=== PATIENT | female | born 1975 | race Caucasian/White ===

== ENCOUNTER 2016-09-05 15:48 | Emergency (ER) | payer SELFPAY ==
--- NOTE | 2016-09-05 15:58 | ER Document Report ---
ED Medical Screen (RME) - General Stated Complaint: HEAD PAIN Time seen by provider: 15:55 Notes: Patient complains of worst headache ever. The last 3 days. States headache is all over head, radiating down to left shoulder. Patient has had some nausea, but denies vomiting or diarrhea. Also complains of right lower back pain. Patient does admit to history of kidney stones in both kidneys. Denies fever, denies cough, cold or congestion. Patient states she has not had her eyes checked in about 10 years. Patient denies blurred vision, but states she does have light sensitivity. Patient states she has liver problems and is unable to take NSAIDs, so she has not taken anything for the headache. I have greeted and performed a rapid initial assessment of this patient. A comprehensive ED assessment and evaluation of the patient, analysis of test results and completion of the medical decision making process will be conducted by additional ED providers. Physical Exam - HEENT Head: Normocephalic Eyes: Normal Conjunctiva: Normal Extraocular movements intact: Yes Pupils: PERRL
[2016-09-05] MEDS ORDERED: OXYCODONE-ACETAMINOPHEN 5-325 MG TABLET PO ONE (16:28)
[2016-09-05] MEDS ORDERED: LISINOPRIL 10 MG TABLET PO ONE ×2 (16:28→20:59)
--- NOTE | 2016-09-05 16:53 | ER Document Report ---
ED Headache - General Chief Complaint: Headache Stated Complaint: HEAD PAIN Information source: Patient Notes: Patient is a 41-year-old female that presents today with onset 3 days of a mild frontal headache. She denies any neck pain, head trauma, weakness or numbness, fevers, or blurry vision. Patient states she was taking lisinopril 20 mg daily until on one year ago when she states she ran out of insurance and does not have a primary care physician. Patient also states around 3 days she had some right sided "flank" pain. She describes any aggravating relieving factors, fevers, dysuria, and states she does have a history of kidney stones. She states she has never needed operative intervention for the kidney stones. TRAVEL OUTSIDE OF THE [place] IN LAST 30 DAYS: No - HPI Patient complains to provider of: Headache Patient reports: Other - See above Onset: Other - See above Onset was: Gradual Timing: Better Quality of pain: Other - See above Severity: Mild Pain Level: 1 Context: denies: Head injury Associated symptoms: Other - See above Exacerbated by: Light, Noise Similar symptoms previously: No Recently seen / treated by doctor: Yes - Related Data Allergies/Adverse Reactions: azathioprine [From Imuran] Allergy (Verified 09/05/16 15:57) Past Medical History - Social History Smoking Status: Current Every Day Smoker Cigarette use (# per day): No Chew tobacco use (# tins/day): No Frequency of alcohol use: None Drug Abuse: None Family History: Reviewed & Not Pertinent Patient has suicidal ideation: No Patient has homicidal ideation: No Renal/ Medical History: Denies: Hx Peritoneal Dialysis Review of Systems - Review of Systems Constitutional: denies: Fever EENT: denies: Eye discharge, Nose discharge Cardiovascular: denies: Chest pain, Palpitations Respiratory: denies: Short of breath Gastrointestinal: denies: Abdomen distended, Vomiting Genitourinary: denies: Dysuria Musculoskeletal: denies: Leg swelling Skin: Other - no hives. denies: Rash Neurological/Psychological: Other - no slurred speech -: Yes All other systems reviewed and negative Physical Exam - Vital signs Vitals: Temp Pulse Resp BP Pulse Ox 98.9 F 86 18 169/88 H 97 09/05/16 15:55 09/05/16 15:55 09/05/16 15:55 09/05/16 15:55 09/05/16 15:55 Notes: Reviewed vital signs and nursing note as charted by RN. CONSTITUTIONAL: Alert and oriented and responds appropriately to questions. Well -appearing; well-nourished HEAD: Normocephalic; atraumatic EYES: PERRL NECK: Supple without meningismus; non-tender; no cervical lymphadenopathy, no masses CARD: Regular rate and rhythm; no murmurs, no clicks, no rubs, no gallops; symmetric distal pulses RESP: Normal chest excursion without splinting or tachypnea; breath sounds clear and equal bilaterally; no wheezes, no rhonchi, no rales ABD/GI: Normal bowel sounds; non-distended; soft, non-tender, no rebound, no guarding; no palpable organomegaly or masses BACK: The back appears normal and is non-tender to palpation, there is no CVA tenderness EXT: Normal ROM in all joints; non-tender to palpation; no cyanosis, no effusions, no edema SKIN: Normal color for age and race; warm; dry; good turgor; capillary refill < 2 seconds; no acute lesions noted NEURO: CN II through XII are intact. Patient has 5 out of 5 bilateral upper and lower extremity strength with sensation intact to light touch. PSYCH: The patient's mood and manner are appropriate. Grooming and personal hygiene are appropriate. Course - Re-evaluation Re-evalutation: 09/05/16 16:53 Given the history and physical examination I will obtain a CT scan of the head, provide pain and blood pressure medications, and obtain a basic chemistry to check the patient's creatinine and potassium level. I believe acute angle- closure glaucoma, temporal arteritis, subarachnoid hemorrhage, altered be extremely unlikely. 09/05/16 17:[address] scan of the head shows no acute abnormalities. Patient appears to have a possible urinary tract infection. Normal creatinine level. Given the history of kidney stones we will also perform a CT scan renal colic protocol to make sure that the patient does not have an infected stone. Patient still has no focal neurological deficits. 09/05/16 18:38 CT scan shows possibly pancreatic inflammation. No kidney stones present. I have added on a lipase. Antibiotics for the urinary tract infection are infusing. 09/05/16 19:52 Patient still has no focal neurological deficits. She states the headache and back pain has resolved. Patient has no obvious kidney stones on CT scan. Lipase level as recorded. Patient will be discharged home with antibiotics, urine culture pending, with strict return precautions. Given the repeat blood pressure before intervention of 102 and 55, I referred the patient to the [facility] and will hold restarting the patient' s lisinopril at this time. - Vital Signs Vital signs: Temp Pulse Resp BP Pulse Ox 98.9 F 84 18 106/60 99 09/05/16 15:55 09/05/16 18:59 09/05/16 18:59 09/05/16 18:59 09/05/16 18:59 - Laboratory Result Diagrams: 09/05/16 16:40 09/05/16 16:40 Laboratory results interpreted by me: 09/05/16 09/05/16 09/05/16 16:40 16:40 16:40 WBC 12.4 H Glucose 142 H Calcium 10.5 H Urine Blood MODERATE H Ur Leukocyte Esterase MODERATE H Discharge - Discharge Clinical Impression: Pyelonephritis Headache Qualifiers: Headache type: unspecified Headache chronicity pattern: acute headache Intractability: not intractable Qualified Code(s): R51 - Headache Condition: Good Disposition: HOME, SELF-CARE Additional Instructions: Come back immediately with any return of headaches, weakness or numbness, fevers or vomiting, or any other acute problems. Please make sure that you follow-up with your primary care provider that we have referred you to as well as the urine culture results while taking the antibiotics we have prescribed.. Prescriptions: Sulfamethoxazole/Trimethoprim [Bactrim Ds Tablet] 1 each PO BID #14 tablet
[2016-09-05 17:09] LABS: APPEARANCE,URINE SLIGHTLY-CLOUDY; BILIRUBIN,URINE NEGATIVE (NEGATIVE); GLUCOSE, URINE NEGATIVE (NEGATIVE); KETONES,URINE NEGATIVE (NEGATIVE); LEUKOCYTE ESTERASE,URINE MODERATE (NEGATIVE); NITRITE,URINE NEGATIVE (NEGATIVE); PROTEIN,URINE NEGATIVE (NEGATIVE); URINE SPECIFIC GRAVITY 1.016; UROBILINOGEN,URINE NEGATIVE mg/dL (<2.0)
[2016-09-05 17:12] LABS: ABSOLUTE BASOPHILS # (AUTO) 0.1 10^3/uL (0.0-0.2); ABSOLUTE EOSINOPHILS # (AUTO) 0.5 10^3/uL (0.0-0.6); ABSOLUTE LYMPHOCYTES (AUTO) 3.3 10^3/uL (0.5-4.7); ABSOLUTE MONOCYTES (AUTO) 0.9 10^3/uL (0.1-1.4); ABSOLUTE NEUT (AUTO) 7.6 10^3/uL (1.7-8.2); BASOPHILS % (AUTO) 0.4 % (0-2); EOSINOPHILS % (AUTO) 3.6 % (0-6); HEMOGLOBIN 14.1 g/dL (12.0-15.5); HGB HCT DIFFERENCE 0.3; LYMPHOCYTES % (AUTO) 26.9 % (13-45); MEAN CORPUSCULAR HEMOGLOBIN 31.8 pg (27.0-33.4); MEAN CORPUSCULAR HGB CONC 33.7 g/dL (32.0-36.0); MEAN CORPUSCULAR VOLUME 95 fl (80-97); MONOCYTES % (AUTO) 7.3 % (3-13); RED BLOOD COUNT 4.44 10^6/uL (3.72-5.28); RED CELL DISTRIBUTION WIDTH 13.8 % (11.5-14.0); SEGMENTED NEUTROPHILS % (AUTO) 61.8 % (42-78); WHITE BLOOD COUNT 12.4 10^3/uL (4.0-10.5)
[2016-09-05 17:31] LABS: ANION GAP 12 (5-19); BLOOD UREA NITROGEN 15 mg/dL (7-20); CALCIUM 10.5 mg/dL (8.4-10.2); CARBON DIOXIDE 27 mmol/L (22-30); CHLORIDE 101 mmol/L (98-107); CREATININE RESULT 0.86 mg/dL (0.52-1.25); GLUCOSE 142 mg/dL (75-110); POTASSIUM 4.2 mmol/L (3.6-5.0); SODIUM 140.4 mmol/L (137-145)
[2016-09-05] MEDS ORDERED: CEFTRIAXONE RTU 1 GM/D5W 50 ML IV ONE (17:32)
[2016-09-05] MEDS ORDERED: ONDANSETRON HCL INJ/PF 4 MG/2 ML SDV ONE (18:29)
[2016-09-05 18:55] LABS: ADD ON TESTING BLD IN LAB ACKNOWLEDGE
[2016-09-05 19:19] LABS: LIPASE 136.1 U/L (23-300)
[2016-09-05 21:37] VITALS: BP 143/84
== END 2016-09-05 21:28 | disposition home or self-care (01) ==
LOC: ER 15:48
DX: R51 Headache (principal); N12 Tubulo-interstitial nephritis, not specified as acute or chronic; F17.200 Nicotine dependence, unspecified, uncomplicated; Z87.442 Personal history of urinary calculi; Z88.8 Allergy status to other drugs, medicaments and biological substances
CPT/HCPCS: 99284; 96375; 96365; 87086; 36415; 83690; 85025; 80048; 81001; 70450; 76380; J2405; J0696

== ENCOUNTER 2017-08-02 00:09 | Emergency (ER) | payer BC ==
[2017-08-02] MEDS ORDERED: ACETAMINOPHEN 325 MG TABLET PO ONE (02:32)
[2017-08-02] MEDS ORDERED: KETOROLAC TROMETHAMINE 60 MG/2 ML SDV IM ONE (02:32)
[2017-08-02] MEDS ORDERED: ONDANSETRON 4 MG TAB.RAPDIS PO ONE (02:32)
[2017-08-02] MEDS ORDERED: LISINOPRIL 10 MG TABLET PO ONE (02:33)
--- NOTE | 2017-08-02 02:38 | ER Document Report ---
ED General - General Chief Complaint: Blood Pressure Problem Stated Complaint: BLOOD PRESSURE PROBLEMS, HEADACHE Time Seen by Provider: 08/02/17 02:18 Mode of Arrival: Ambulatory Information source: Patient TRAVEL OUTSIDE OF THE [place] IN LAST 30 DAYS: No - HPI Notes: Patient is a 42-year-old female with history of hypertension presents emergency department with reports that she felt dizzy at work and then briefly felt nauseated and then developed a headache. The patient reports no head injury or focal weakness or numbness or vomiting. The patient denies any chest pain. 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 The patient is supposed to be on lisinopril 20 mg daily but has not had any for 1 year. The patient denies any fever or difficulty breathing or constipation or diarrhea. History of tubal ligation. Not the worst headache of her life. No neck stiffness. - Related Data Allergies/Adverse Reactions: azathioprine [From Imuran] Allergy (Verified 09/05/16 15:57) Past Medical History - General Information source: Patient - Social History Smoking Status: Never Smoker Frequency of alcohol use: None Drug Abuse: None Lives with: Spouse/Significant other Family History: Reviewed & Not Pertinent Renal/ Medical History: Denies: Hx Peritoneal Dialysis Review of Systems - Review of Systems Notes: REVIEW OF SYSTEMS: CONSTITUTIONAL : Denies fever, chills, or sweats. Denies recent illness. EENT: Denies eye, ear, throat, or mouth pain or symptoms. Denies nasal or sinus congestion or discharge. Denies throat, tongue, or mouth swelling or difficulty swallowing. CARDIOVASCULAR: Denies chest pain. Denies palpitations or racing or irregular heart beat. Denies ankle edema. RESPIRATORY: Denies cough, cold, or chest congestion. Denies shortness of breath, difficulty breathing, or wheezing. GASTROINTESTINAL: Denies abdominal pain or distention. Denies vomiting, or diarrhea. Denies blood in vomitus, stools, or per rectum. Denies black, tarry stools. Denies constipation. GENITOURINARY: Denies difficulty urinating, painful urination, burning, frequency, blood in urine, or discharge. FEMALE GENITOURINARY: Denies vaginal bleeding, heavy or abnormal periods, irregular periods. Denies vaginal discharge or odor. MUSCULOSKELETAL: Denies back or neck pain or stiffness. Denies joint pain or swelling. SKIN: Denies rash, lesions or sores. HEMATOLOGIC : Denies easy bruising or bleeding. LYMPHATIC: Denies swollen, enlarged glands. NEUROLOGICAL: Denies confusion or altered mental status. Denies passing out or loss of consciousness. Denies weakness or paralysis or loss of use of either side. Denies problems with gait or speech. Denies sensory loss, numbness, or tingling. Denies seizures. PSYCHIATRIC: Denies anxiety or stress. Denies depression, suicidal ideation, or homicidal ideation. ALL OTHER SYSTEMS REVIEWED AND NEGATIVE. Dictation was performed using [employer] voice recognition software Physical Exam - Vital signs Vitals: Temp Pulse Resp BP Pulse Ox 99.1 F 111 H 20 145/98 H 95 08/02/17 00:15 08/02/17 00:15 08/02/17 00:15 08/02/17 00:15 08/02/17 00:15 - Notes Notes: Patient PHYSICAL EXAMINATION: GENERAL: Well-appearing, well-nourished and in no acute distress. HEAD: Atraumatic, normocephalic. No temporal arterial tenderness. No TMJ joint tenderness. No sinus tenderness. EYES: Pupils equal round and reactive to light, extraocular movements intact, conjunctiva are normal. Anterior chambers are not shallow. ENT: Nares patent, oropharynx clear without exudates. Moist mucous membranes. NECK: Normal range of motion, supple without lymphadenopathy. No meningismus. Negative Kernig's. Negative Brudzinski's. LUNGS: Breath sounds clear to auscultation bilaterally and equal. No wheezes rales or rhonchi. HEART: Regular rate and rhythm without murmurs ABDOMEN: Soft, nontender, nondistended abdomen. No guarding, no rebound. No masses appreciated. Female : deferred Musculoskeletal: Normal range of motion, no pitting or edema. No cyanosis. NEUROLOGICAL: Cranial nerves grossly intact. Normal speech, normal gait. Normal sensory, motor exams. Normal reflexes. No cerebellar ataxia. PSYCH: Normal mood, normal affect. SKIN: Warm, Dry, normal turgor, no rashes or lesions noted. Course - Re-evaluation Re-evalutation: 08/02/17 02:37 Patient was given Toradol and Tylenol and Zofran and her regular dose of lisinopril 20 mg by mouth. Patient's initial blood pressure was 145/98 on arrival. 08/02/17 06:09 Headache was resolved after medications and patient denied any nausea. No evidence for endorgan damage or acute intracranial bleed or injury or CVA or acute neurologic compromise. Blood sugar was elevated at 269 and patient's hemoglobin A1c was over 11. Patient was counseled at length about the need to control her diet tend to have follow-up for her diabetes. She stated that in the past the patient has had diet controlled diabetes and was told to watch her they said down there and try to get him to hurry sandbag diet and sugars closely. Repeat blood pressure was 128/70. - Vital Signs Vital signs: Temp Pulse Resp BP Pulse Ox 99.1 F 111 H 20 145/98 H 95 08/02/17 00:15 08/02/17 00:15 08/02/17 00:15 08/02/17 00:15 08/02/17 00:15 - Laboratory Result Diagrams: 08/02/17 02:35 08/02/17 02:35 Laboratory results interpreted by me: 08/02/17 08/02/17 08/02/17 02:35 02:35 02:35 WBC 14.4 H Absolute Neutrophils 9.4 H Glucose 269 H Hemoglobin A1c % 11.5 H Calcium 10.7 H Urine Protein Urine Glucose (UA) Urine Blood 08/02/17 05:19 WBC Absolute Neutrophils Glucose Hemoglobin A1c % Calcium Urine Protein 30 H Urine Glucose (UA) >=500 H Urine Blood SMALL H - EKG Interpretation by Ar EKG shows normal: Sinus rhythm Additional EKG results interpreted by me: 08/02/17 03:19 EKG as interpreted by nc showed normal sinus rhythm heart rate of 70. There is left anterior fascicular block. There is no gross evidence for acute DE or ischemia noted. There is no old EKG available for comparison. Discharge - Discharge Clinical Impression: Hyperglycemia Hypertension Qualifiers: Hypertension type: essential hypertension Qualified Code(s): I10 - Essential ( primary) hypertension Headache Qualifiers: Headache type: other headache syndrome Qualified Code(s): G44.89 - Other headache syndrome Urinary tract infection Qualifiers: Urinary tract infection type: site unspecified Hematuria presence: without hematuria Qualified Code(s): N39.0 - Urinary tract infection, site not specified Condition: Stable Disposition: HOME, SELF-CARE Instructions: Headache ([facility]), High Blood Pressure ([facility]), Hyperglycemia ([facility]), Urinary Tract Infection ([facility]) Additional Instructions: Follow-up with your regular doctor for further diabetic education and for a glucometer. Drink plenty of water. Return to the emergency department in case of vomiting, weakness, severe headache. Prescriptions: Ondansetron [Zofran Odt 4 mg Tablet] 1 tab PO Q8HP PRN #10 tab.rapdis PRN Reason: For Nausea/Vomiting Lisinopril [Zestril] 20 mg PO DAILY #30 tablet Metformin HCl [Glucophage 500 mg Tablet] 500 mg PO BID #60 tablet Sulfamethoxazole/Trimethoprim [Bactrim Ds Tablet] 1 each PO BID #14 tablet Forms: Return to Work Referrals: SHI HI MD [Primary Care Provider] - Follow up in 3-5 days
[2017-08-02 02:51] LABS: ABSOLUTE BASOPHILS # (AUTO) 0.1 10^3/uL (0.0-0.2); ABSOLUTE EOSINOPHILS # (AUTO) 0.4 10^3/uL (0.0-0.6); ABSOLUTE LYMPHOCYTES (AUTO) 3.7 10^3/uL (0.5-4.7); ABSOLUTE MONOCYTES (AUTO) 0.8 10^3/uL (0.1-1.4); ABSOLUTE NEUT (AUTO) 9.4 10^3/uL (1.7-8.2); BASOPHILS % (AUTO) 0.8 % (0-2); EOSINOPHILS % (AUTO) 2.6 % (0-6); HEMATOCRIT 42.2 % (36.0-47.0); HEMOGLOBIN 14.5 g/dL (12.0-15.5); LYMPHOCYTES % (AUTO) 25.5 % (13-45); MEAN CORPUSCULAR HEMOGLOBIN 32.4 pg (27.0-33.4); MEAN CORPUSCULAR HGB CONC 34.4 g/dL (32.0-36.0); MEAN CORPUSCULAR VOLUME 94 fl (80-97); MONOCYTES % (AUTO) 5.9 % (3-13); PLATELET COUNT 263 10^3/uL (150-450); RED BLOOD COUNT 4.48 10^6/uL (3.72-5.28); RED CELL DISTRIBUTION WIDTH 13.5 % (11.5-14.0); SEGMENTED NEUTROPHILS % (AUTO) 65.2 % (42-78); TOTAL CELLS COUNTED % (AUTO) 100 %; WHITE BLOOD COUNT 14.4 10^3/uL (4.0-10.5)
[2017-08-02 03:00] LABS: ALANINE AMINOTRANSFERASE 34 U/L (9-52); ALBUMIN 4.2 g/dL (3.5-5.0); ALKALINE PHOSPHATASE 94 U/L (38-126); ANION GAP 10 (5-19); ASPARTATE AMINO TRANSFERASE 24 U/L (14-36); BILIRUBIN,DIRECT 0.3 mg/dL (0.0-0.4); BILIRUBIN,TOTAL 0.6 mg/dL (0.2-1.3); BLOOD UREA NITROGEN 13 mg/dL (7-20); CALCIUM 10.7 mg/dL (8.4-10.2); CARBON DIOXIDE 26 mmol/L (22-30); CHLORIDE 101 mmol/L (98-107); GLUCOSE 269 mg/dL (75-110); POTASSIUM 4.1 mmol/L (3.6-5.0); TOTAL PROTEIN 7.3 g/dL (6.3-8.2)
--- NOTE | 2017-08-02 04:06 | RADIOLOGY REPORT (SQ) ---
EXAM DESCRIPTION: CT HEAD WITHOUT CLINICAL HISTORY: 42 years Female, headache COMPARISON: 09/05/2016. TECHNIQUE: No contrast. This exam was performed according to our departmental dose-optimization program, which includes automated exposure control, adjustment of the mA and/or kV according to patient size and/or use of iterative reconstruction technique. FINDINGS: No hemorrhage or infarct. No mass, mass effect, or midline shift. Brain and extra-axial structures appear intact. IMPRESSION: Normal CT of the head.
[2017-08-02 06:18] LABS: APPEARANCE,URINE SLIGHTLY-CLOUDY; BILIRUBIN,URINE NEGATIVE (NEGATIVE); COLOR,URINE YELLOW; GLUCOSE, URINE >=500 mg/dL (NEGATIVE); KETONES,URINE NEGATIVE (NEGATIVE); LEUKOCYTE ESTERASE,URINE NEGATIVE (NEGATIVE); NITRITE,URINE NEGATIVE (NEGATIVE); PROTEIN,URINE 30 mg/dL (NEGATIVE); URINE SPECIFIC GRAVITY 1.026; UROBILINOGEN,URINE NEGATIVE mg/dL (<2.0)
[2017-08-02] MEDS ORDERED: SULFAMETHOXAZOLE/TRIMETHOPRIM 800-160 MG TABLET PO ONE (06:21)
[2017-08-02 06:44] VITALS: BP 128/70
--- NOTE | 2017-08-02 07:45 | EKG REPORT ---
SEVERITY:- ABNORMAL ECG - SINUS RHYTHM LEFT ANTERIOR FASCICULAR BLOCK BORDERLINE ST-T CHANGES NONSPECIFIC : Confirmed by: Jonathon Landers MD 02-Aug-2017 07:44:15
== END 2017-08-02 06:40 | disposition home or self-care (01) ==
LOC: ER 00:09
DX: I10 Essential (primary) hypertension (principal); T46.4X6A Underdosing of angiotensin-converting-enzyme inhibitors, initial encounter; Z91.14 Patient's other noncompliance with medication regimen; G44.89 Other headache syndrome; N39.0 Urinary tract infection, site not specified; E11.65 Type 2 diabetes mellitus with hyperglycemia; I44.4 Left anterior fascicular block; Z88.8 Allergy status to other drugs, medicaments and biological substances
CPT/HCPCS: 93005; 99284; 96372; 36415; 85025; 80053; 81001; 84484; 83036; 70450; 93010; J1885; S0119

== ENCOUNTER 2020-02-21 14:53 | Emergency (ER) | payer SELFPAY ==
[2020-02-21] MEDS ORDERED: MORPHINE SULFATE 10 MG/ML INJ IV ONE (15:22)
[2020-02-21] MEDS ORDERED: KETOROLAC TROMETHAMINE INJ/PF 30 MG/1 ML SDV IV ONE (15:22)
[2020-02-21] MEDS ORDERED: NORMAL SALINE 1000 ML 1,000 ML IV ONE (15:22)
[2020-02-21] MEDS ORDERED: ONDANSETRON HCL INJ/PF 4 MG/2 ML SDV IV ONE (15:22)
--- NOTE | 2020-02-21 15:22 | ER Document Report ---
ED GI/ - General Chief Complaint: Possible Kidney Stone Stated Complaint: NAUSEA/VOMITING/FLANK PAIN Primary Care Provider: SHI HI MD [NO LOCAL MD] - Follow up as needed Mode of Arrival: Ambulatory Information source: Patient Notes: Otherwise healthy 45-year-old female presents emergency department chief complaint of sudden onset left flank pain. She reports associated nausea and urinary retention. Patient reports history of kidney stones, states this feels similar but worse. She denies any fever or chills. She states she was feeling fine prior to the onset of this. She denies any concern for any COVID-19 symptoms. TRAVEL OUTSIDE OF THE [place] IN LAST 30 DAYS: No - Related Data Allergies/Adverse Reactions: azathioprine [From Imuran] Allergy (Verified 02/21/20 15:17) Past Medical History - General Information source: Patient - Social History Smoking Status: Current Every Day Smoker Frequency of alcohol use: None Drug Abuse: None Family History: Reviewed & Not Pertinent Renal/ Medical History: Reports: Hx Kidney Stones. Denies: Hx Peritoneal Dialysis Surgical Hx: Negative - Immunizations Immunizations up to date: Yes Review of Systems - Review of Systems Constitutional: No symptoms reported EENT: No symptoms reported Cardiovascular: No symptoms reported Respiratory: No symptoms reported Gastrointestinal: No symptoms reported Genitourinary: Flank pain, Retention Female Genitourinary: No symptoms reported Musculoskeletal: No symptoms reported Skin: No symptoms reported Hematologic/Lymphatic: No symptoms reported Neurological/Psychological: No symptoms reported Physical Exam - Vital signs Vitals: Temp Pulse Resp BP Pulse Ox 98.1 F 71 18 135/86 H 96 02/21/20 15:15 02/21/20 15:15 02/21/20 15:15 02/21/20 15:15 02/21/20 15:15 - Notes Notes: PHYSICAL EXAMINATION: GENERAL: Well-appearing, well-nourished and in moderate distress. HEAD: Atraumatic, normocephalic. EYES: Pupils equal round and reactive to light, extraocular movements intact, conjunctiva are normal. ENT: Nares patent, oropharynx clear without exudates. Moist mucous membranes. NECK: Normal range of motion, supple without lymphadenopathy LUNGS: Breath sounds clear to auscultation bilaterally and equal. No wheezes rales or rhonchi. HEART: Regular rate and rhythm without murmurs ABDOMEN: Soft, nontender, nondistended abdomen. No guarding, no rebound. No masses appreciated. Female : Left CVA tenderness. Musculoskeletal: Normal range of motion, no pitting or edema. No cyanosis. NEUROLOGICAL: Cranial nerves grossly intact. Normal speech, normal gait. Normal sensory, motor exams PSYCH: Normal mood, normal affect. SKIN: Warm, Dry, normal turgor, no rashes or lesions noted. Course - Re-evaluation Re-evalutation: 02/21/20 17:14 Abdomen/Pelvis CT 02/21/20 16:13 IMPRESSION: 3 mm stone proximal left ureter. Mild hydronephrosis. CT abdomen pelvis without contrast shows a 3 mm stone at the proximal left ureter. There is mild hydronephrosis, no perinephric stranding. We are still awaiting blood and urine. Patient's pain is controlled after administration of medications. Laboratory investigations are reassuring. Patient does have mildly elevated white blood count. Otherwise normal CBC, CMP unremarkable. No evidence of UTI on urinalysis. Patient will be discharged home at this time on Flomax, Percocet, Zofran and ibuprofen. She will follow-up with her primary care. ED return precautions discussed, patient verbalized understanding and agreement with same. - Vital Signs Vital signs: Temp Pulse Resp BP Pulse Ox 98.6 F 59 L 20 153/92 H 98 02/21/20 19:45 02/21/20 19:45 02/21/20 19:45 02/21/20 19:45 02/21/20 19:45 - Laboratory Result Diagrams: 02/21/20 17:11 02/21/20 17:11 Laboratory results interpreted by me: 02/21/20 02/21/20 02/21/20 17:11 17:11 18:01 WBC 12.8 H Lymph % (Auto) 10.6 L Absolute Neuts (auto) 10.9 H Seg Neutrophils % 85.4 H Glucose 133 H Urine Ketones 20 H Urine Blood LARGE H Ur Leukocyte Esterase SMALL H Discharge - Discharge Clinical Impression: Kidney stone on left side Condition: Stable Disposition: HOME, SELF-CARE Additional Instructions: Your symptoms should improve over the course of the next one week. If you continue to have pain for greater than one week or your pain is not controlled with the pain medications that you have been sent home with you need to return to the emergency department. Please also return if you develop fever, persistent vomiting, or any other symptoms that are concerning to you. You should take ibuprofen 800 mg every 8 hours and use the Percocet as prescribed only for pain not controlled by ibuprofen. You are also been sent home with a medication called Flomax to help pass the stone. You've been given Zofran to assist with nausea. Please follow-up with urology in the next 2-3 days. Prescriptions: Oxycodone HCl/Acetaminophen [Percocet 5-325 mg Tablet] 1 tab PO Q6HP PRN #12 tablet PRN Reason: Tamsulosin HCl [Flomax] 0.4 mg PO DAILY #7 cap.er.24h Ibuprofen [Motrin 800 mg Tablet] 800 mg PO Q8H PRN #30 tab PRN Reason: Ondansetron [Zofran Odt 4 mg Tablet] 1 - 2 tab PO Q4H PRN #15 tab.rapdis PRN Reason: For Nausea/Vomiting Forms: Return to Work Referrals: SHI HI MD [NO LOCAL MD] - Follow up as needed
--- NOTE | 2020-02-21 17:11 | RADIOLOGY REPORT (SQ) ---
EXAM DESCRIPTION: CT ABD/PELVIS NO ORAL OR IV IMAGES COMPLETED DATE/TIME: 02/21/2020 4:39 pm REASON FOR STUDY: Left flank pain COMPARISON: 09/05/2016 TECHNIQUE: CT scan of the abdomen and pelvis performed without intravenous or oral contrast. Images reviewed with lung, soft tissue, and bone windows. Reconstructed coronal and sagittal MPR images revi ewed. All images stored on PACS. All CT scanners at this facility use dose modulation, iterative reconstruction, and/or weight based d osing when appropriate to reduce radiation dose to as low as reasonably achievable (ALARA). [facility]: Dose Right [facility]: CareDose [facility]: Dose Right [facility]: Teradose 4D [facility]: Smart Next Generation Dance RADIATION DOSE: CT Rad equipment meets quality standard of care and radiation dose reduction techniq ues were employed. CTDIvol: 19.2 mGy. DLP: 1176 mGy-cm.mGy. LIMITATIONS: None. FINDINGS: LOWER CHEST: No significant findings. No nodules or infiltrates. NON-CONTRASTED LIVER, SPLEEN, ADRENALS: Evaluation limited by lack of IV contrast. No identified sign ificant masses. PANCREAS: No masses. No peripancreatic inflammatory changes. GALLBLADDER: No identified stones by CT criteria. No inflammatory changes to suggest cholecystitis. RIGHT KIDNEY AND URETER: No suspicious masses. Assessment limited by lack of IV contrast. 14 mm low er pole renal calculus. No hydronephrosis or hydroureter. LEFT KIDNEY AND URETER: No suspicious masses. Assessment limited by lack of IV contrast. A few abdiel l calculi measuring up to 8 mm lower pole. 3 mm stone in the left proximal ureter at level of L3-4. Mild hydronephrosis. AORTA AND RETROPERITONEUM: No aneurysm. No retroperitoneal masses or adenopathy. BOWEL AND PERITONEAL CAVITY: Diverticulosis. No obvious masses or inflammatory changes. No free flui d. APPENDIX: Normal. PELVIS, BLADDER, AND ABDOMINAL WALL:No abnormal masses. No free fluid. Bladder normal. BONES: No significant findings. OTHER: No other significant finding. IMPRESSION: 3 mm stone proximal left ureter. Mild hydronephrosis. COMMENT: Quality ID # [id number]: Final reports with documentation of one or more dose reduction techniques (e.g., Automated exposure control, adjustment of the mA and/or kV according to patient size, use of iterative reconstruction technique) TECHNICAL DOCUMENTATION: JOB ID: [id number] 2010 [employer]- All Rights Reserved Reading location - IP/workstation name: [email or web address]
[2020-02-21 17:43] LABS: ABSOLUTE LYMPHOCYTES (AUTO) 1.4 10^3/uL (0.5-4.7); ABSOLUTE MONOCYTES (AUTO) 0.5 10^3/uL (0.1-1.4); ABSOLUTE NEUT (AUTO) 10.9 10^3/uL (1.7-8.2); BASOPHILS % (AUTO) 0.2 % (0-2); EOSINOPHILS % (AUTO) 0.2 % (0-6); HEMATOCRIT 41.8 % (36.0-47.0); HEMOGLOBIN 13.9 g/dL (12.0-15.5); LYMPHOCYTES % (AUTO) 10.6 % (13-45); MEAN CORPUSCULAR HEMOGLOBIN 31.5 pg (27.0-33.4); MEAN CORPUSCULAR HGB CONC 33.3 g/dL (32.0-36.0); MEAN CORPUSCULAR VOLUME 95 fl (80-97); MONOCYTES % (AUTO) 3.6 % (3-13); PLATELET COUNT 277 10^3/uL (150-450); RED BLOOD COUNT 4.42 10^6/uL (3.72-5.28); RED CELL DISTRIBUTION WIDTH 13.8 % (11.5-14.0); SEGMENTED NEUTROPHILS % (AUTO) 85.4 % (42-78); TOTAL CELLS COUNTED % (AUTO) 100 %; WHITE BLOOD COUNT 12.8 10^3/uL (4.0-10.5)
[2020-02-21 17:55] LABS: ALBUMIN 4.1 g/dL (3.5-5.0); ALKALINE PHOSPHATASE 63 U/L (38-126); ANION GAP 8 (5-19); ASPARTATE AMINO TRANSFERASE 33 U/L (14-36); BILIRUBIN,TOTAL 0.7 mg/dL (0.2-1.3); BLOOD UREA NITROGEN 13 mg/dL (7-20); CALCIUM 9.9 mg/dL (8.4-10.2); CARBON DIOXIDE 23 mmol/L (22-30); CHLORIDE 107 mmol/L (98-107); GLUCOSE 133 mg/dL (75-110); POTASSIUM 4.3 mmol/L (3.6-5.0); TOTAL PROTEIN 7.4 g/dL (6.3-8.2)
[2020-02-21 18:31] LABS: APPEARANCE,URINE SLIGHTLY-CLOUDY; BILIRUBIN,URINE NEGATIVE (NEGATIVE); COLOR,URINE YELLOW; GLUCOSE, URINE NEGATIVE (NEGATIVE); KETONES,URINE 20 mg/dL (NEGATIVE); LEUKOCYTE ESTERASE,URINE SMALL (NEGATIVE); NITRITE,URINE NEGATIVE (NEGATIVE); PROTEIN,URINE NEGATIVE (NEGATIVE); URINE SPECIFIC GRAVITY 1.012; UROBILINOGEN,URINE NEGATIVE mg/dL (<2.0)
[2020-02-21] MEDS ORDERED: TAMSULOSIN HCL 0.4 MG CAP.SR.24H PO ONE (19:14)
[2020-02-21] MEDS ORDERED: HYDROCODONE/ACETAMINOPHEN 5-325 MG (6 TAB/ER DISP) PO PRN (19:14)
[2020-02-21] MEDS ORDERED: ONDANSETRON ODT 4 MG TAB (6 TAB/ER DISP) PO PRN (19:14)
[2020-02-21 19:58] VITALS: BP 153/92
== END 2020-02-21 20:04 | disposition home or self-care (01) ==
LOC: ER 14:53
DX: N20.0 Calculus of kidney (principal); R11.2 Nausea with vomiting, unspecified; R10.9 Unspecified abdominal pain; R33.9 Retention of urine, unspecified; Z88.8 Allergy status to other drugs, medicaments and biological substances; F17.200 Nicotine dependence, unspecified, uncomplicated
CPT/HCPCS: 99285; 96361; 96374; 96375; 36415; 83690; 84703; 85025; 80053; 81001; 74176; J1885; J2270; J2405; J7030

== ENCOUNTER 2020-04-16 14:38 | Emergency (ER) | payer SELFPAY ==
[2020-04-16] MEDS ORDERED: RINGERS SOLUTION,LACTATED 1,000 ML IV ONE (15:54)
[2020-04-16] MEDS ORDERED: CEFTRIAXONE 1 GM/D5W RTU 1 GM/50 ML RTUPB IV ONE (15:54)
[2020-04-16] MEDS ORDERED: HYDROMORPHONE HCL INJ/PF 2 MG/ML AMPULE IV ONE (15:55)
[2020-04-16] MEDS ORDERED: ONDANSETRON HCL INJ/PF 4 MG/2 ML SDV IV ONE (15:55)
--- NOTE | 2020-04-16 16:05 | ER Document Report ---
ED General - General Stated Complaint: NAUSEA,FLANK PAIN Time Seen by Provider: 04/16/20 15:43 Primary Care Provider: MALORIE RIVAS NP [Primary Care Provider] - Follow up as needed Mode of Arrival: Stretcher Information source: Patient Notes: Patient is a morbidly obese 45-year-old female with history of autoimmune hepatitis and diet controlled diabetes type 2 and frequent kidney stones/kidney infections in the past. Patient reports recurrent problems with stones since February. Today her presentation is for left flank pain, fever, tachycardia, nausea and vomiting. TRAVEL OUTSIDE OF THE [place] IN LAST 30 DAYS: No - Related Data Allergies/Adverse Reactions: azathioprine [From Imuran] Allergy (Verified 02/21/20 15:17) Past Medical History - Social History Smoking Status: Unknown if Ever Smoked Family History: Reviewed & Not Pertinent Renal/ Medical History: Reports: Hx Kidney Stones. Denies: Hx Peritoneal Dialysis - Immunizations Immunizations up to date: Yes Review of Systems - Review of Systems Notes: Constitutional: Positive for fevers and chills EENT: No eye redness. No eye pain. No ear pain. No sore throat. Cardiovascular: No chest pain. No palpitations. Respiratory: No cough. No shortness of breath. No respiratory distress. Gastrointestinal: + left flank pain, nausea, vomiting. No diarrhea Genitourinary: Atraumatic. No lesions. No pain. No discharge. Musculoskeletal: Atraumatic. No swelling. No deformities. Skin: No rash or lesions. Lymphatic: No swollen lymph nodes. Neurologic: No headache. No syncope. Psychiatric: No suicidal or homicidal ideation. Physical Exam - Vital signs Vitals: Temp Pulse Resp BP Pulse Ox 101.3 F H 114 H 22 H 138/84 H 94 04/16/20 14:50 04/16/20 14:50 04/16/20 14:50 04/16/20 14:50 04/16/20 14:50 - Notes Notes: General: Moderate distress. Ill-appearing Cardiac: Well-perfused. Tachycardic. no murmurs, rubs, or gallops. Pulmonary: No respiratory distress. No cyanosis. Bilateral lung fiels are clear to auscultation. Abdominal: Non-distended. Non-rigid. Bowels sounds are present in all four quadrants. No guarding or rebound. Bilateral CVA tenderness HEENT: Head is atraumatic. Conjunctivae not reddened. No tearing. PERRL. EOMI. Orbits atraumatic. No periorbital swelling or erythema. Oropharynx is without erythema, swelling, or exudates. Neck: Supple. No adenopathy. No meningismus. Dermatologic: Warm with good turgor. No rash. Atraumatic. Chest: Atraumatic. No chest wall tenderness to palpation. Musculoskeletal: Moves all extremities well. No range of motion deficits. no muscular or joint tenderness. No paraspinal muscle tenderness. no midline spinal tenderness or step-off. Genitourinary: Examination deferred Neurologic: No gross neurologic deficits. Psychiatric: Normal mood. Course - Re-evaluation Re-evalutation: 04/16/20 20:37 Patient is found to have bilateral at least partially obstructing kidney stones as well as elevated creatinine and infection in the urine. She sees a urologist in [place] named Dr. Lam. I called [facility] thinking the patient is probably going to need some urinary stents. I spoke to Dr. 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 this evening - Vital Signs Vital signs: Temp Pulse Resp BP Pulse Ox 101.2 F H 114 H 14 138/75 H 96 04/16/20 19:11 04/16/20 14:50 04/16/20 19:01 04/16/20 19:01 04/16/20 19:01 - Laboratory Result Diagrams: 04/16/20 16:18 04/16/20 16:18 Laboratory results interpreted by me: 04/16/20 04/16/20 04/16/20 16:18 16:18 17:42 WBC 16.8 H Absolute Neuts (auto) 12.6 H Absolute Monos (auto) 1.6 H Sodium 136.9 L Creatinine 1.71 H Est GFR ( Amer) 39 L Est GFR (MDRD) Non-Af 32 L Glucose 151 H Calcium 10.8 H Urine Protein 30 H Urine Blood LARGE H Leukocyte Esterase Rfl MODERATE H - Diagnostic Test Radiology reviewed: Reports reviewed Discharge - Discharge Clinical Impression: Hydronephrosis with renal and ureteral calculus obstruction, Pyelonephritis Condition: Good Disposition: [facility] Admitting Provider: accepting doctor: Raven Referrals: MALORIE RIVAS NP [Primary Care Provider] - Follow up as needed
[2020-04-16 16:38] LABS: ABSOLUTE BASOPHILS # (AUTO) 0.1 10^3/uL (0.0-0.2); ABSOLUTE EOSINOPHILS # (AUTO) 0.1 10^3/uL (0.0-0.6); ABSOLUTE LYMPHOCYTES (AUTO) 2.4 10^3/uL (0.5-4.7); ABSOLUTE MONOCYTES (AUTO) 1.6 10^3/uL (0.1-1.4); ABSOLUTE NEUT (AUTO) 12.6 10^3/uL (1.7-8.2); BASOPHILS % (AUTO) 0.4 % (0-2); EOSINOPHILS % (AUTO) 0.5 % (0-6); HEMATOCRIT 43.2 % (36.0-47.0); HEMOGLOBIN 14.9 g/dL (12.0-15.5); LYMPHOCYTES % (AUTO) 14.1 % (13-45); MEAN CORPUSCULAR HEMOGLOBIN 31.9 pg (27.0-33.4); MEAN CORPUSCULAR HGB CONC 34.5 g/dL (32.0-36.0); MEAN CORPUSCULAR VOLUME 92 fl (80-97); MONOCYTES % (AUTO) 9.7 % (3-13); PLATELET COUNT 352 10^3/uL (150-450); RED BLOOD COUNT 4.68 10^6/uL (3.72-5.28); RED CELL DISTRIBUTION WIDTH 13.5 % (11.5-14.0); SEGMENTED NEUTROPHILS % (AUTO) 75.3 % (42-78); TOTAL CELLS COUNTED % (AUTO) 100 %; WHITE BLOOD COUNT 16.8 10^3/uL (4.0-10.5)
--- NOTE | 2020-04-16 16:54 | RADIOLOGY REPORT (SQ) ---
EXAM DESCRIPTION: CT ABD/PELVIS NO ORAL OR IV IMAGES COMPLETED DATE/TIME: 04/16/2020 4:41 pm REASON FOR STUDY: Left flank pain, fever, tachy, hx stones COMPARISON: 02/21/2020 TECHNIQUE: CT scan of the abdomen and pelvis performed without intravenous or oral contrast. Images reviewed with lung, soft tissue, and bone windows. Reconstructed coronal and sagittal MPR images revi ewed. All images stored on PACS. All CT scanners at this facility use dose modulation, iterative reconstruction, and/or weight based d osing when appropriate to reduce radiation dose to as low as reasonably achievable (ALARA). [facility]: Dose Right [facility]: CareDose [facility]: Dose Right [facility]: Teradose 4D [facility]: [employer] RADIATION DOSE: CT Rad equipment meets quality standard of care and radiation dose reduction techniq ues were employed. CTDIvol: 19.0 mGy. DLP: 1163 mGy-cm.mGy. LIMITATIONS: None. FINDINGS: LOWER CHEST: Minimal bibasilar atelectasis. NON-CONTRASTED LIVER, SPLEEN, ADRENALS: Evaluation limited by lack of IV contrast. No identified sign ificant masses. PANCREAS: No masses. No peripancreatic inflammatory changes. GALLBLADDER: No identified stones by CT criteria. No inflammatory changes to suggest cholecystitis. RIGHT KIDNEY AND URETER: No suspicious masses. Assessment limited by lack of IV contrast. Several n onobstructing right renal calculi. The largest measures 6.9 mm. Hounsfield units measure approximat sourav 215. There is a partially obstructing stone in the proximal right ureter measured 10.7 mm. Houn sfield units measure 460. Minimal dilatation of the right renal pelvis. LEFT KIDNEY AND URETER: No suspicious masses. Assessment limited by lack of IV contrast. 4.9 mm pro ximal left ureteral stone. Additional small lower pole nonobstructing stone. Moderate left-sided h ydronephrosis and proximal hydroureter. There is left perinephric stranding. AORTA AND RETROPERITONEUM: No aneurysm. No retroperitoneal masses or adenopathy. BOWEL AND PERITONEAL CAVITY: No obvious masses or inflammatory changes. No free fluid. APPENDIX: Normal. PELVIS, BLADDER, AND ABDOMINAL WALL:Numerous phleboliths in the pelvis. BONES: No significant findings. OTHER: No other significant finding. IMPRESSION: 1. Moderate left-sided hydronephrosis and perinephric stranding secondary to a 4.9 mm p roximal left ureteral stone. Additional small stone in the lower pole the left kidney. 2. Partially obstructing 10.7 mm stone in the proximal right ureter. Very mild dilatation of the ri ght collecting system. No hydronephrosis. Additional nonobstructing right renal calculi. COMMENT: Quality ID # [id number]: Final reports with documentation of one or more dose reduction techniques (e.g., Automated exposure control, adjustment of the mA and/or kV according to patient size, use of iterative reconstruction technique) TECHNICAL DOCUMENTATION: JOB ID: [id number] 2010 [employer]- All Rights Reserved Reading location - IP/workstation name: [email or web address]
[2020-04-16 16:58] LABS: ALBUMIN 4.5 g/dL (3.5-5.0); ALKALINE PHOSPHATASE 89 U/L (38-126); ANION GAP 13 (5-19); ASPARTATE AMINO TRANSFERASE 22 U/L (14-36); BILIRUBIN,DIRECT 0.4 mg/dL (0.0-0.4); BILIRUBIN,TOTAL 1.1 mg/dL (0.2-1.3); BLOOD UREA NITROGEN 12 mg/dL (7-20); CALCIUM 10.8 mg/dL (8.4-10.2); CARBON DIOXIDE 25 mmol/L (22-30); CHLORIDE 99 mmol/L (98-107); GLUCOSE 151 mg/dL (75-110); POTASSIUM 4.1 mmol/L (3.6-5.0)
[2020-04-16 18:11] LABS: APPEARANCE,URINE SLIGHTLY-CLOUDY; BILIRUBIN,URINE NEGATIVE (NEGATIVE); COLOR,URINE YELLOW; GLUCOSE, URINE NEGATIVE (NEGATIVE); KETONES,URINE NEGATIVE (NEGATIVE); PROTEIN,URINE 30 mg/dL (NEGATIVE); URINE SPECIFIC GRAVITY 1.017; UROBILINOGEN,URINE NEGATIVE mg/dL (<2.0)
[2020-04-16] MEDS ORDERED: ACETAMINOPHEN 325 MG TABLET PO ONE (19:26)
[2020-04-16] MEDS ORDERED: NORMAL SALINE 1000 ML 1,000 ML IV ONE (19:27)
[2020-04-16] MEDS ORDERED: METOCLOPRAMIDE HCL INJ/PF 10 MG/2 ML SDV IV ONE (20:48)
[2020-04-16 21:39] VITALS: BP 126/74
== END 2020-04-16 21:41 | disposition short-term general hospital (02) ==
LOC: ER 14:38
DX: N13.2 Hydronephrosis with renal and ureteral calculous obstruction (principal); N12 Tubulo-interstitial nephritis, not specified as acute or chronic; R11.0 Nausea; R19.7 Diarrhea, unspecified; R50.9 Fever, unspecified; R00.0 Tachycardia, unspecified; E11.9 Type 2 diabetes mellitus without complications; Z87.442 Personal history of urinary calculi
CPT/HCPCS: 99285; 96361; 96375; 96365; 36415; 87040; 83605; 84703; 85025; 80053; 81001; 74176; J2765; J1170; J2405; J7030; J7120; J0696